=== PATIENT | female | born 1950 | race Caucasian/White ===

== ENCOUNTER → 2018-12-07 | Outpatient (CLI) | payer MEDICARE ==
[~2018-12-07] MED LIST: PREDNISONE20 M1 PO
[2018-12-07 10:46] LABS: BASO % 0.3 % (0.0-1.0); EOS # 0.1 10*3/uL (0.0-0.4); EOS % 0.9 % (1.0-4.0); HEMATOCRIT 41.6 % (37.0-47.0); HEMOGLOBIN 13.6 g/dl (12.0-16.0); LYMPH # 1.7 10*3/uL (1.3-4.4); LYMPH % 16.6 % (27.0-41.0); MEAN CELL VOLUME 101.7 fl (81.0-99.0); MEAN CORPUSCULAR HGB 33.3 pg (27.0-31.0); MEAN CORPUSCULAR HGB CONC 32.7 g/dl (33.0-37.0); MONO # 0.6 10*3/uL (0.1-1.0); MONO % 5.5 % (3.0-9.0); NEUT # 7.5 10*3/uL (2.3-7.9); NEUT % 76.1 % (47.0-73.0); PLATELET COUNT AUTOMATED 278 10*3/uL (130-400); RED BLOOD COUNT 4.09 10*6/uL (4.10-5.10); RED CELL DISTRI WIDTH 12.1 % (0-14.5); WHITE BLOOD COUNT 9.9 10*3/uL (4.8-10.8)
[2018-12-07 11:06] LABS: ALBUMIN 3.3 gm/dl (3.1-4.5); CREATININE 1.64 mg/dL (0.55-1.02); POTASSIUM 4.1 mmol/L (3.5-5.1)
[2018-12-07 11:13] LABS: BILIRUBIN NEGATIVE (NEGATIVE); BLOOD 2+ (NEGATIVE); CLARITY SL CLOUDY (CLEAR); COLOR YELLOW (YELLOW); GLUCOSE 3+ (NEGATIVE); KETONE NEGATIVE (NEGATIVE); LEUKO ESTERASE NEGATIVE (NEGATIVE); NITRITE NEGATIVE (NEGATIVE); PH 5.5 (5.0-9.0); SPECIFIC GRAVITY <= 1.005 (1.005-1.030); UROBILINOGEN 0.2 E.U./dl (0.2-1.0)
[2018-12-07 11:14] LABS: FREE T4 1.08 ng/dl (0.76-1.46); THYROID STIM HORMONE (HS) 1.08 uIU/ml (0.358-4.75); TOTAL PROTEIN 7.5 gm/dL (6.4-8.2)
[2018-12-07 12:19] LABS: EPITHELIAL CELLS 20-30
[2018-12-07 12:21] LABS: BACTERIA TRACE; RBC 21-30 rbc/hpf (0-2); WBC 16-20 wbc/hpf (0-5); YEAST 1+
[2018-12-08 09:08] LABS: CREATININE,URINE 57.9 mg/dL (Not Estab.); MICRO ALBUMIN/CRE RATIO 140.6 (0.0-30.0)
== END | disposition home or self-care (01) ==
LOC: LAB 09:52
PROVIDERS: Internal Medicine
DX: E11.9 Type 2 diabetes mellitus without complications (principal); R35.8 Other polyuria; E55.9 Vitamin D deficiency, unspecified

== ENCOUNTER → 2019-03-06 | Outpatient (CLI) | payer MEDICARE | END | disposition home or self-care (01) | LOC: US 11:46 | DX: E11.51 Type 2 diabetes mellitus with diabetic peripheral angiopathy without gangrene (principal); E11.42 Type 2 diabetes mellitus with diabetic polyneuropathy; M79.604 Pain in right leg; I25.10 Atherosclerotic heart disease of native coronary artery without angina pectoris ==

== ENCOUNTER 2019-07-17 14:53 | Emergency (ER) | payer MEDICARE ==
[~2019-07-17] VITALS: Ht 162.5 cm; Wt 95.3 kg
[2019-07-17 16:02] LABS: BASO % 0.3 % (0.0-1.0); EOS # 0.3 10*3/uL (0.0-0.4); EOS % 1.9 % (1.0-4.0); HEMATOCRIT 41.7 % (37.0-47.0); HEMOGLOBIN 13.1 g/dl (12.0-16.0); LYMPH # 1.4 10*3/uL (1.3-4.4); LYMPH % 10.9 % (27.0-41.0); MEAN CORPUSCULAR HGB 32.7 pg (27.0-31.0); MEAN CORPUSCULAR HGB CONC 31.4 g/dl (33.0-37.0); MEAN PLATELET VOLUME 10.6 fl (9.6-12.3); MONO # 0.9 10*3/uL (0.1-1.0); MONO % 6.8 % (3.0-9.0); NEUT # 10.3 10*3/uL (2.3-7.9); NEUT % 79.8 % (47.0-73.0); PLATELET COUNT AUTOMATED 300 10*3/uL (130-400); RED BLOOD COUNT 4.01 10*6/uL (4.10-5.10); RED CELL DISTRI WIDTH 12.4 % (0-14.5); WHITE BLOOD COUNT 12.9 10*3/uL (4.8-10.8)
[2019-07-17 16:12] LABS: ALBUMIN 2.9 gm/dl (3.1-4.5); CREATININE 1.15 mg/dL (0.55-1.02); POTASSIUM 4.1 mmol/L (3.5-5.1); TOTAL PROTEIN 7.4 gm/dL (6.4-8.2)
[2019-07-17] MEDS ORDERED: TESSALON PERLE100 M1 PO (17:07)
== END 2019-07-17 17:37 | disposition home or self-care (01) ==
LOC: ED 14:53
PROVIDERS: Physician Assistant
DX: R05 Cough (principal); R06.02 Shortness of breath; J34.89 Other specified disorders of nose and nasal sinuses; E11.9 Type 2 diabetes mellitus without complications; I50.9 Heart failure, unspecified; Z91.048 Other nonmedicinal substance allergy status; Z79.899 Other long term (current) drug therapy

== ENCOUNTER 2019-07-21 06:27 | Inpatient (IN) | payer MEDICARE ==
[2019-07-21] VITALS (7 sets, daily range): BP systolic 140–207; BP diastolic 80–112
[~2019-07-21] VITALS: Ht 162.5 cm; Wt 96.3 kg
[~2019-07-21 06:27] MED LIST changes: +TESSALON PERLE100 M1 PO
[2019-07-21 08:46] LABS: BASO % 0.3 % (0.0-1.0); EOS # 0.2 10*3/uL (0.0-0.4); EOS % 1.4 % (1.0-4.0); HEMATOCRIT 42.8 % (37.0-47.0); HEMOGLOBIN 13.2 g/dl (12.0-16.0); LYMPH # 1.4 10*3/uL (1.3-4.4); LYMPH % 11.7 % (27.0-41.0); MEAN CELL VOLUME 104.6 fl (81.0-99.0); MEAN CORPUSCULAR HGB 32.3 pg (27.0-31.0); MEAN CORPUSCULAR HGB CONC 30.8 g/dl (33.0-37.0); MEAN PLATELET VOLUME 9.8 fl (9.6-12.3); MONO # 0.6 10*3/uL (0.1-1.0); MONO % 5.4 % (3.0-9.0); NEUT # 9.7 10*3/uL (2.3-7.9); NEUT % 80.9 % (47.0-73.0); PLATELET COUNT AUTOMATED 364 10*3/uL (130-400); RED BLOOD COUNT 4.09 10*6/uL (4.10-5.10); RED CELL DISTRI WIDTH 12.6 % (0-14.5); WHITE BLOOD COUNT 11.9 10*3/uL (4.8-10.8)
[2019-07-21 09:03] LABS: ALBUMIN 2.9 gm/dl (3.1-4.5); ALKALINE PHOSPHATASE 106 U/L (45-117); BUN 16 mg/dl (7-24); CHLORIDE 107 mmol/L (98-107); CREATININE 1.19 mg/dL (0.55-1.02); POTASSIUM 3.7 mmol/L (3.5-5.1); SGOT/AST 10 IU/L (3-35); SGPT/ALT 18 U/L (12-78); SODIUM 142 mmol/L (136-145)
[2019-07-21 09:09] LABS: TROPONIN I < 0.015 ng/ml (<0.045)
--- NOTE | 2019-07-21 11:00 | NUR ---
LUNCH TRAY ORDERED FOR PT AT THIS TIME. PT DENIES ANY DISCOMFORT AT THIS TIME. RESPS EASY AND NONLABORED.
--- NOTE | 2019-07-21 13:30 | NUR ---
Time: 1329 A 69 year old FEMALE admitted to 5E under services of DR. RONNY JONES,BRENDEN Gerard Pt. arrived via wheel chair from ER. Chief complaint: COUGH, SOB, PNEUMONITIS. NEGRA SEALS
[2019-07-21] MEDS ORDERED: CARVEDILOL25 MG PO (13:51)
[2019-07-21] MEDS ORDERED: ROSUVASTATIN CAL5 MG PO (13:52)
[2019-07-21] MEDS ORDERED: LOSARTAN POTAS100 M1 PO (13:52)
--- NOTE | 2019-07-21 14:24 | NUR ---
NOTIFIED OF CONSULT
--- NOTE | 2019-07-21 17:50 | NUR ---
PT C.O OF FEELING SHAKY AND ANXIOUS BP 210/100. NOTIFIED NEW ORDER RECIEVED
[2019-07-21] MEDS ORDERED: BASAG SOL SC (18:16)
--- NOTE | 2019-07-21 20:00 | NUR ---
A&Ox3. PATIENT C/O HEADACHE AT THIS TIME. STATES THAT ATIVAN WAS EFFECTIVE FORHER ANXIETY. BP STILL HIGH AT THIS TIME- DR JEFFERSON AWARE, BP MEDICATION TO BE GIVEN AT THIS TIME. PROVIDED SPUTUM CUP FOR SAMPLE AND INSTRUCTED ON USE. CALL LIGHT IN REACH. WILL MONITOR.
--- NOTE | 2019-07-21 20:38 | NUR ---
PATIENT REQUESTING MEDICATION FOR HEADACHE. TYLENOL ADMINISTERED PRESCRIBED. WILL MONITOR FOR EFFECTIVENESS.
--- NOTE | 2019-07-21 21:38 | NUR ---
PATIENT RESTING WITH EYES CLOSED. RESPIRATIONS EASY AND UNLABORED. CALL LIGHT IN REACH. WILL MONITOR.
--- NOTE | 2019-07-21 23:58 | NUR ---
DR JEFFERSON FOR PT BP OF 176/100. 100MG LOSARTAN TO BE GIVEN NOW. SEE ORDERS.
[2019-07-22] VITALS: BP 176/100
[2019-07-22 04:00] VITALS: BP 176/91
--- NOTE | 2019-07-22 06:05 | NUR ---
24 HR chart check completed.
[2019-07-22 08:00] VITALS: BP 156/93
--- NOTE | 2019-07-22 09:30 | NUR ---
PATIENT C/O BURING OF ZITHROMYACIN. NO REDNESS OR REACTION VISUALIZED. IV STOPPED AND FLUSHED. WILL F/U WITH DR JEFFERSON.
--- NOTE | 2019-07-22 10:08 | NUR ---
DR JEFFERSON NOTIFIED THAT PATIENT IS C/O ZITHROMAX BURING, EVEN RUNNING AT A SLOWER RATE. OK TO DISCONTINUE AT THIS TIME SINCE SHE IS ON LEVAQUIN PO.
--- NOTE | 2019-07-22 10:31 | NUR ---
Tailor'S Aide in to talk to patient. Patient states lives at HOME with DAUGHTER. There are OUTSIDE steps in the home. Physician: ADILSON [facility] Patient's level of ADLs: INDEPENDENT Patient has working utilities: YES DME: [facility] Follow-up physician's appointment after d/c: PREFERS TO MAKE OWN AFTER DISCHARGE Does patient want to access PORTAL?: NO Discharge plan PT LIVES AT HOME WITH HER DAUGHTER AND IS INDEPENDENT IN HER CARE. DENIES SHE WILL HAVE ANY NEEDS AT HOME ON DISCHARGE. PLANS TO RETURN HOME WITH DAUGHTER WHEN MEDICALLY STABLE. WILL CONTINUE TO FOLLOW. WILL HAVE A RIDE HOME.. ZACH SCHMITT
[2019-07-22 12:00] VITALS: BP 194/91
--- NOTE | 2019-07-22 12:00 | NUR ---
AMBULATING TO SHOWER-ROOM WITH WALKER AND ASSIST X 1. NO ACUTE DISTRESS NOTED. RESPIRATIONS EASY. NO VOICED COMPLAINTS
--- NOTE | 2019-07-22 14:00 | NUR ---
SITTING AT BEDSIDE WITH NO ACUTE DISTRESS NOTED.
[2019-07-22 16:00] VITALS: BP 192/98
--- NOTE | 2019-07-22 19:33 | NUR ---
24 HR chart check completed.
[2019-07-22 20:00] VITALS: BP 188/100; BP 192/106
--- NOTE | 2019-07-22 20:00 | NUR ---
PATIENT A&Ox3. SITTING AT THIS SIDE OF THE BED. STATES THAT HER BREATHING IS FEELING BETTER TODAY. HAS NO COMPLAINTS AT THIS TIME. WILL MONITOR.
--- NOTE | 2019-07-22 20:50 | NUR ---
CALLED DR JEFFERSON FOR BP 188/100 AND PATIENT CONCERNS WITH BLOOD SUGAR OF 285. NEW ORDES RECEIVED SEE EMAR.
--- NOTE | 2019-07-22 21:11 | NUR ---
PATIENT REQUESTING MEDICATION FOR GENERAL ACHES. TYLENOL ADMINISTERED PRESCRIBED. WILL MONITOR FOR EFFECTIVENESS.
--- NOTE | 2019-07-22 22:11 | NUR ---
PATIENT STATES THAT TYLENOL WAS A LITTLE EFFECTIVE FOR GENERAL ACHES. WILL MONITOR.
--- NOTE | 2019-07-22 23:00 | NUR ---
ASSUMED CARE FOR THIS PT AT THIS TIME. NO C/O VOICED. CALL LIGHT IN REACH.
[2019-07-23] VITALS: BP 180/100
--- NOTE | 2019-07-23 00:12 | NUR ---
DR. JEFFERSON NOTIFIED OF PT'S MANUAL BP OF 180/100. T.O. RCVD FOR CLONODINE 0.1MG PO X1 NOW.
[2019-07-23 01:51] VITALS: BP 170/94
[2019-07-23 03:43] VITALS: BP 170/96
--- NOTE | 2019-07-23 05:30 | NUR ---
PT MEDICATED W/ES TYLENOL FOR C/O H/A. PT HAS NOT SLEPT AT ALL TONIGHT. PT ENCOURAGED TO SLEEP TO PROMOTE HEALING. PT STATES SHE IS TRYING BUT BED IS UNCOMFORTABLE. EXTRA PILLOWS GIVEN TO PT, OFFERED BED CHANGE, OFFERED RECLINER CHAIR. PT REFUSED. CALL LIGHT IN REACH.
--- NOTE | 2019-07-23 06:17 | NUR ---
24 HR chart check completed.
[2019-07-23 08:00] VITALS: BP 166/85
--- NOTE | 2019-07-23 09:00 | NUR ---
Shirring Machine Operator in to see patient. No new needs or request at this time. Discussed home health care services and she denies any home needs at this time. When medically stable she will be discharged to home.
--- NOTE | 2019-07-23 11:25 | NUR ---
NOTIFIED OF BS
[2019-07-23 16:00] VITALS: BP 164/97
--- NOTE | 2019-07-23 19:19 | NUR ---
24 HR chart check completed.
[2019-07-23 20:00] VITALS: BP 179/106; BP 188/88
--- NOTE | 2019-07-23 22:09 | NUR ---
PATIENT REQUESTING TYLENOL FOR HEADACHE. ADMINISTERED PRESCRIBED. WILL MONITOR FOR EFFECTIVENESS.
--- NOTE | 2019-07-23 23:09 | NUR ---
PATIENT RESTING WITH EYSE CLOSED. RESPIRATIONS EASY AND UNLABORED. CALL LIGHT IN REACH.
[2019-07-24] VITALS: BP 175/88
--- NOTE | 2019-07-24 07:42 | NUR ---
SPOKE WITH DR JEFFERSON ABOUT PATIENT'S CONCERN FOR YEAST INFECTION- NEW ORDER RECEIVED.
[2019-07-24 08:00] VITALS: BP 169/83
--- NOTE | 2019-07-24 10:00 | NUR ---
PT AWAKE, ALERT, ORIENTED X3. DENIES ANY DISTRESS AT THIS TIME. LUNGS CLEAR/DIM. ROOM AIR. NONPRODUTCIVE COUGH NOTED AT TIMES ON ASSESSMENT. 1-2+ DEPENDENT EDEMA NOTED TO BLE. PT DENIES ANY N/V/D. CALL LIGHT IN REACH AT ALL TIMES.
[2019-07-24 12:00] VITALS: BP 159/80
[2019-07-24 16:00] VITALS: BP 165/84
[2019-07-24 20:00] VITALS: BP 176/97
--- NOTE | 2019-07-24 20:30 | NUR ---
PATIENT IS SITTING ON SIDE OF BED WITH EASY AND REGULAR RESPERS ON ROOM AIR. ASSESSMENT IS COMPLETE WITH NO C/O OR S/S OF DISTRESS NOTED AT THIS TIME. BED IS LOW, LOCKED, AND CALL LIGHT IS WITHIN REACH. WILL CONTINUE TO MONITOR, SEE SHIFT ASSESSMENT.
--- NOTE | 2019-07-25 06:10 | NUR ---
PATIENT RESTED THOUGHOUT THE NIGHT WITH EASY AND REGULAR RESPERS ON ROOM AIR. AROUSE EASILY FOR BEDSIDE GLUCOSE CHECK. PRN TYLENOL REQUESTED AND PROVIDED. CALL LIGHT IS WITHIN REACH. WILL MONITOR EFFECT.
[2019-07-25 08:00] VITALS: BP 183/87
[2019-07-25] MEDS ORDERED: AMLODIPINE BESYL5 MG PO (09:13)
[2019-07-25 12:00] VITALS: BP 141/68
--- NOTE | 2019-07-25 13:56 | NUR ---
Discharge instructions reviewed with patient/family. Patient receptive and verbalizes understanding. Follow-up care arranged. Written instructions given to patient/family. HEPLOCK DISCONTINUED. PATIENT TAKEN OFF FLOOR VIA WHEELCHAIR TO GRINDING OPERATOR SCRIPT @ PHARMACY. JD CONTRERAS
== END 2019-07-25 14:00 | disposition home or self-care (01) | DRG 191 ==
LOC: ED 06:27 → 5E 12:08 → EDHOLD 12:08 → 5E 12:28
PROVIDERS: Internal Medicine; ADMIT Internal Medicine
DX: J44.0 Chronic obstructive pulmonary disease with (acute) lower respiratory infection (principal); E44.1 Mild protein-calorie malnutrition; J44.1 Chronic obstructive pulmonary disease with (acute) exacerbation; E11.9 Type 2 diabetes mellitus without complications; F51.01 Primary insomnia; F41.1 Generalized anxiety disorder; I11.0 Hypertensive heart disease with heart failure; I50.9 Heart failure, unspecified; J20.9 Acute bronchitis, unspecified; E66.9 Obesity, unspecified; Z53.20 Procedure and treatment not carried out because of patient's decision for unspecified reasons; F17.210 Nicotine dependence, cigarettes, uncomplicated; Z91.19 Patient's noncompliance with other medical treatment and regimen; Z88.8 Allergy status to other drugs, medicaments and biological substances; Z68.36 Body mass index [BMI] 36.0-36.9, adult

== ENCOUNTER → 2019-08-10 | Outpatient (CLI) | payer MEDICARE ==
[~2019-08-10] MED LIST changes: +AMLODIPINE BESYL5 MG PO; +BASAG SOL SC; +CARVEDILOL25 MG PO; +LOSARTAN POTAS100 M1 PO; +ROSUVASTATIN CAL5 MG PO
== END | disposition home or self-care (01) ==
LOC: CT 08-06 10:00
DX: I51.7 Cardiomegaly (principal); I25.10 Atherosclerotic heart disease of native coronary artery without angina pectoris

== ENCOUNTER 2024-08-04 17:47 | Emergency (ER) | payer MEDICARE ==
[~2024-08-04] VITALS: Ht 162.5 cm
[~2024-08-04 17:47] MED LIST changes: +ASPIRIN81 M1 PO; +ELIQUIS5 M1 PO; +HYDRALAZINE HYD50 MG PO; +JANUVIA25 MG PO; +LANTUS100 UNIT/1 SQ; +LASIX40 MG PO; +TRAD5TAB1 PO
[2024-08-04] MEDS ORDERED: HYDROmorphONE Hydrochloride 1 MG/ML SYR IV ONE (17:55)
[2024-08-04] MEDS ORDERED: Ondansetron Hydrochloride 4 MG/2 ML VIAL IV ONE (17:55)
[2024-08-04] MEDS ORDERED: Albuterol Sulfate 2.5 MG/3 ML VIAL NEB ONE (17:55)
[2024-08-04 18:35] LABS: BUN 16 mg/dl (9-23); CHLORIDE 102 mmol/L (98-107); POTASSIUM 4.5 mmol/L (3.4-5.1)
[2024-08-04 18:48] LABS: HEMATOCRIT 32.6 % (37.0-47.0); MEAN CELL VOLUME 113.2 fl (81.0-99.0); MEAN CORPUSCULAR HGB 31.9 pg (27.0-31.0); MEAN CORPUSCULAR HGB CONC 28.2 g/dl (33.0-37.0); MEAN PLATELET VOLUME 10.2 fl (9.6-12.3); NUCLEATED RED BLOOD CELL 0.3 % (0.0-0.0); PLATELET COUNT AUTOMATED 369 10*3/uL (130-400); RED BLOOD COUNT 2.88 10*6/uL (4.10-5.10); RED CELL DISTRI WIDTH 16.8 % (0-14.5); WHITE BLOOD COUNT 14.5 10*3/uL (4.8-10.8)
[2024-08-04] MEDS ORDERED: OXYCODONE-ACET1 EACH PO (18:51)
[2024-08-04 18:54] LABS: MANUAL DIFF REFLEX YES
[2024-08-04 19:13] LABS: OVALOCYTES FEW; TOTAL CELLS COUNTED 100 #CELLS
[2024-08-04 19:14] LABS: PLATELET SUFFICIENCY NORMAL (NORMAL)
[2024-08-04] MEDS ORDERED: ROCURONIUM BROMIDE 50 MG/5 ML SYRINGE IV ONE (20:00)
[2024-08-04] MEDS ORDERED: ETOMIDATE 20 MG/10 ML VIAL IV ONE (20:00)
[2024-08-04] MEDS ORDERED: Ketamine Hydrochloride 500 MG,IV 1 EA in SODIUM CHLORIDE 0.9% 500 ML IV ONE (20:30)
[2024-08-04] MEDS ORDERED: hydrALAZINE hydrochloride 20 MG/ML VIAL IV ONE (20:55)
[2024-08-04] MEDS ORDERED: Piperacillin Sodium/Tazobact 50 ML IV ONE (23:20)
[2024-08-04] MEDS ORDERED: Vancomycin Hydrochloride 250 ML IV ONE (23:20)
[2024-08-04] MEDS ORDERED: NOREPINEPHRINE BITARTRATE/D5W 250 ML IV SCH (23:20)
[2024-08-05] MEDS ORDERED: DEXMEDETOMIDINE IN 0.9 % NACL 100 ML IV SCH (00:10)
[2024-08-05] MEDS ORDERED: PROPOFOL 50 ML IV SCH ×2 (01:35→02:05)
[2024-08-05] MEDS ORDERED: PROPOFOL 100 ML IV ONE (01:49)
[2024-08-05] MEDS ORDERED: Ketamine Hydrochloride 500 MG,IV 1 EA in SODIUM CHLORIDE 0.9% 500 ML IV SCH (01:55)
[2024-08-05] MEDS ORDERED: ATROPINE SULFATE 1 MG/10 ML SYR IV ONE (02:04)
[2024-08-06] MEDS ORDERED: ETOMIDATE 20 MG/10 ML VIAL IV ONE (21:38)
[2024-08-06] MEDS ORDERED: ROCURONIUM BROMIDE 50 MG/5 ML SYRINGE IV ONE (21:38)
== END 2024-08-05 03:57 | disposition short-term general hospital (02) ==
LOC: ED 17:47
PROVIDERS: Emergency Medicine
DX: J96.01 Acute respiratory failure with hypoxia (principal); Z20.822 Contact with and (suspected) exposure to COVID-19; I11.0 Hypertensive heart disease with heart failure; I50.9 Heart failure, unspecified; E11.9 Type 2 diabetes mellitus without complications; E78.5 Hyperlipidemia, unspecified; I48.91 Unspecified atrial fibrillation; Z91.018 Allergy to other foods; Z91.048 Other nonmedicinal substance allergy status; Z88.8 Allergy status to other drugs, medicaments and biological substances; Z79.899 Other long term (current) drug therapy; Z79.84 Long term (current) use of oral hypoglycemic drugs; Z79.4 Long term (current) use of insulin; Z90.710 Acquired absence of both cervix and uterus; Z87.891 Personal history of nicotine dependence